=== PATIENT | female | born 1985 ===

== ENCOUNTER 2016-12-23 16:40 | Emergency (ER) | payer OTHER ==
[2016-12-23 16:47] VITALS: BMI 38.6
[2016-12-23 16:50] VITALS: TEMP 98.2
[2016-12-23] MEDS ORDERED: Albuterol-Ipratrop 3 mg / 0.5 (3 ml) UD IH SCH (17:30)
--- NOTE | 2016-12-23 17:30 | ED PDOC ---
Arrival/HPI - General Chief Complaint: Cough, Cold, Congestion Time Seen by Provider: 12/23/16 17:25 Historian: Patient - History of Present Illness Narrative History of Present Illness (Text): 12/23/16 17:27 This 31 yo female presents to this ED c/o chest congestion, productive cough x 4 days. Patient admits she has been working in a [place] environment. Patient also c/o mild sob, wheezing. Denies chest pain, hemoptysis, rash, fever , recent travel, or sick contact. PERC nehative for PE Time/Duration: Other (4 days) Context: Home Past Medical History - Provider Review Nursing Documentation Reviewed: Yes - Infectious Disease Hx of Infectious Diseases: None - Tetanus Immunization Tetanus Immunization: Unknown - Past Medical History Past Medical History: No Previous - Cardiac Hx Cardiac Disorders: No - Pulmonary Hx Respiratory Disorders: No - Neurological Hx Neurological Disorder: No - HEENT Hx HEENT Disorder: No - Renal Hx Renal Disorder: No - Endocrine/Metabolic Hx Endocrine Disorders: No - Hematological/Oncological Hx Blood Disorders: No - Integumentary Hx Dermatological Disorder: No - Musculoskeletal/Rheumatological Hx Musculoskeletal Disorders: No - Gastrointestinal Hx Gastrointestinal Disorders: No - Genitourinary/Gynecological Hx Genitourinary Disorders: No - Psychiatric Hx Psychophysiologic Disorder: No Hx Depression: No Hx Substance Use: No - Surgical History Hx Section: Yes (x2) Other/Comment: 2 miscarriages - Anesthesia Hx Anesthesia: Yes Hx Anesthesia Reactions: No - Suicidal Assessment Feels Threatened In Home Enviroment: No Family/Social History - Physician Review Nursing Documentation Reviewed: Yes Family/Social History: No Known Family HX Smoking Status: Never Smoked Hx Alcohol Use: No Hx Substance Use: No Hx Substance Use Treatment: No Allergies/Home Meds Allergies/Adverse Reactions: Allergies No Known Allergies Allergy (Verified 12/23/16 16:46) Review of Systems - Review of Systems Constitutional: Normal. absent: Fatigue, Weight Change, Fevers, Night Sweats Eyes: Normal ENT: Normal Respiratory: SOB, Cough, Sputum, Wheezing Cardiovascular: Normal. absent: Chest Pain, Palpitations, Edema Gastrointestinal: Normal. absent: Abdominal Pain, Diarrhea, Nausea, Vomiting Genitourinary Female: Normal. absent: Dysuria, Frequency, Hematuria Musculoskeletal: Normal. absent: Back Pain, Myalgias Skin: Normal. absent: Rash Neurological: Normal. absent: Headache, Dizziness, Focal Weakness, Gait Changes , Speech Changes, Facial Droop, Disequilibrium, Seizure Endocrine: Normal Hemo/Lymphatic: Normal Psychiatric: Normal Physical Exam Vital Signs Temp Pulse Resp BP Pulse Ox 12/23/16 20:17 70 16 148/82 98 12/23/16 18:40 75 18 152/89 H 97 12/23/16 16:48 98.2 F 77 19 156/93 H 97 Temperature: Afebrile Blood Pressure: Hypertensive Pulse: Regular Respiratory Rate: Normal Appearance: Positive for: Well-Appearing, Non-Toxic, Comfortable Pain Distress: None Mental Status: Positive for: Alert and Oriented X 3 - Systems Exam Head: Present: Atraumatic, Normocephalic Pupils: Present: PERRL Extroacular Muscles: Present: EOMI Conjunctiva: Present: Normal Mouth: Present: Moist Mucous Membranes Pharnyx: Present: Normal. No: ERYTHEMA, EXUDATE, TONSILS ENLARGED, Peritonsilar Swelling, Uvular Deviation Nose (External): Present: Atraumatic Nose (Internal): Present: Normal Inspection Neck: Present: Normal Range of Motion Respiratory/Chest: Present: Good Air Exchange, Wheezes, Rhonchi. No: Respiratory Distress, Accessory Muscle Use, Rales, Retracting, Tachypneic, Tender to Palpation Cardiovascular: Present: Regular Rate and Rhythm, Normal S1, S2. No: Murmurs Abdomen: Present: Normal Bowel Sounds. No: Tenderness, Distention, Peritoneal Signs Back: Present: Normal Inspection. No: CVA Tenderness Upper Extremity: Present: Normal Inspection, Normal ROM, NORMAL PULSES, Neurovascularly Intact, Capillary Refill < 2s. No: Cyanosis, Edema Lower Extremity: Present: Normal Inspection, NORMAL PULSES, Normal ROM, Neurovascularly Intact, Capillary Refill < 2 s. No: Edema, CALF TENDERNESS Neurological: Present: GCS=15, CN II-XII Intact, Speech Normal, Motor Func Grossly Intact, Normal Sensory Function, Normal Cerebellar Funct, Gait Normal Skin: Present: Warm, Dry, Normal Color. No: Rashes Psychiatric: Present: Alert, Oriented x 3, Normal Insight, Normal Concentration Medical Decision Making ED Course and Treatment: 12/23/16 19:43 Re-evaluation. Patient feels better. Discussed results and plan with patient who expresses understanding. All questions answered and there is agreement with the plan to discharge home with instructions. Patient stable for discharge. Return if symptoms persist or worsen. I spoke with patient regarding side effect, and medical complication from taking Prednisone, and Z-Pack. It includes AVN, arrhythmias, allergic reaction , DM, glaucoma, osteoporosis, narcotic abuse, addiction to opiods, and may other potential complication from medication. She understood risk, and she still requesting the above medication. Re-evaluation Time: 19:43 Reassessment Condition: Re-examined, Improved - RAD Interpretation Narrative RAD Interpretations (Text): CXR: NAD Radiology Orders: 12/23/16 17:26 CHEST TWO VIEWS (PA/LAT) [RAD] Stat - Medication Orders Current Medication Orders: Discontinued Medications Albuterol/Ipratropium (Duoneb 3 Mg/0.5 Mg (3 Ml) Ud) 3 ml IH Q15M KARINE Stop: 12/23/16 18:01 Last Admin: 12/23/16 17:58 Dose: 3 ml Prednisone (Prednisone Tab) 60 mg PO STAT ONE Stop: 12/23/16 17:27 Last Admin: 12/23/16 17:58 Dose: 60 mg Disposition/Present on Arrival - Present on Arrival Any Indicators Present on Arrival: No History of DVT/PE: No History of Uncontrolled Diabetes: No Urinary Catheter: No History of Decub. Ulcer: No History Surgical Site Infection Following: None - Disposition Have Diagnosis and Disposition been Completed?: Yes Diagnosis: Acute bronchitis Disposition: HOME/ ROUTINE Disposition Time: 19:44 Patient Plan: Discharge Condition: IMPROVED Discharge Instructions (ExitCare): Acute Bronchitis (ED) Additional Instructions: Call private doctor for follow up visit in 1-2 days. Take medication as instructed. Return to emergency if symptoms worsen. Prescriptions: Albuterol HFA [Ventolin HFA 90 mcg/actuation (8 g)] 2 puff IH [id number] PRN #120 puff PRN Reason: Wheezing Azithromycin [Z-Jose] 250 mg PO DAILY #6 tab Prednisone [Deltasone] 60 mg PO DAILY #9 tablet Promethazine/Codeine [Phenergan/Codeine Oral Syrup] 5 ml PO Q4H PRN #90 ml PRN Reason: Cough Referrals: Niharika Henson MD [Medical Doctor] - Follow up with primary Forms: [employer] (Amharic), WORK NOTE
[2016-12-23 20:47] VITALS: BP 148/82; PULSE 70; RESP 16; O2SAT 98
--- NOTE | 2016-12-24 07:51 | RAD ---
HISTORY: cough COMPARISON: No prior. TECHNIQUE: Chest PA and lateral FINDINGS: LUNGS: No active pulmonary disease. PLEURA: No significant pleural effusion identified. No pneumothorax apparent. CARDIOVASCULAR: Normal. OSSEOUS STRUCTURES: No significant abnormalities. VISUALIZED UPPER ABDOMEN: Normal. OTHER FINDINGS: Large body habitus IMPRESSION: No active disease.
== END 2016-12-23 20:17 | disposition home or self-care (01) ==
LOC: ED 16:40
DX: J20.9 Acute bronchitis, unspecified (principal)